=== PATIENT | male | born 1950 | race Two or more races ===

== ENCOUNTER 2019-10-21 08:43 | Emergency (ER) | payer MEDICARE, MEDICAID ==
[~2019-10-21] VITALS: Ht 175.3 cm; Wt 58.9 kg
[2019-10-21] MEDS ORDERED: KETOROLAC 30MG/ML VIAL IV STA (10:35)
[2019-10-21] MEDS ORDERED: SODIUM CHLORIDE 0.9% 1,000 ML IV ONE (10:35)
[2019-10-21 11:04] LABS: HEMATOCRIT. 39.6 % (42.0-52.0); HEMOGLOBIN. 13.2 g/dL (14.0-18.0); MEAN CORPUSCULAR HEMOGLOBIN 31.1 pg (28.0-32.0); MEAN CORPUSCULAR VOLUME 93.4 fL (80.0-94.0); MEAN PLATELET VOLUME 7.5 fl (7.4-10.4); PLATELET 172 x1000/uL (130-400); RED BLOOD CELL COUNT 4.24 mill/uL (4.7-6.1); RED CELL DISTRIBUTION WIDTH 14.3 % (11.6-14.6)
[2019-10-21 11:10] LABS: CHLORIDE 100 mEq/L (98-107)
[2019-10-21 11:13] LABS: PROTHROMBIN TIME 10.7 sec (9.6-11.0)
[2019-10-21 11:34] LABS: PLATELET ESTIMATE NORMAL
[2019-10-21 14:44] LABS: CLARITY URINE CLEAR (CLEAR); COLOR URINE YELLOW (YELLOW); KETONES URINE NEGATIVE (NEGATIVE); LEUKOCYTE ESTERASE URINE NEGATIVE (NEGATIVE); NITRITE URINE NEGATIVE (NEGATIVE); OCCULT BLOOD URINE NEGATIVE (NEGATIVE); PH URINE 5.5 (4.5-8.0); PROTEIN URINE NEGATIVE (NEGATIVE); UROBILINOGEN URINE 0.2 E.U./dL (0.2-1.0)
[2019-10-21 14:59] VITALS: BP 164/92
[2019-10-21 15:25] LABS: *AMPHETAMINES SCREEN URINE NEGATIVE (NEGATIVE); *BARBITURATES SCREEN URINE NEGATIVE (NEGATIVE)
[2019-10-21 15:26] LABS: *COCAINE SCREEN URINE NEGATIVE (NEGATIVE); CANNABINOID URINE SCREEN NEGATIVE (NEGATIVE); METHADONE URINE SCREEN NEGATIVE (NEGATIVE); OPIATES URINE SCREEN NEGATIVE (NEGATIVE); PHENCYCLIDINE URINE SCREEN NEGATIVE (NEGATIVE)
[2019-10-21 15:28] LABS: *BENZODIAZEPINES SCREEN URINE NEGATIVE (NEGATIVE)
== END 2019-10-21 15:19 | disposition home or self-care (01) ==
LOC: ER 08:43
DX: K29.70 Gastritis, unspecified, without bleeding (principal); J44.9 Chronic obstructive pulmonary disease, unspecified; E11.9 Type 2 diabetes mellitus without complications; F17.290 Nicotine dependence, other tobacco product, uncomplicated; F14.10 Cocaine abuse, uncomplicated; F12.10 Cannabis abuse, uncomplicated; Z90.49 Acquired absence of other specified parts of digestive tract; Z88.5 Allergy status to narcotic agent
CPT/HCPCS: 36415; 74176; 80053; 80305; 81003; 83690; 85025; 85610; 93005; 96374; 99285; J1885; J7030

== ENCOUNTER 2019-12-01 13:10 | Emergency (ER) | payer MEDICARE, MEDICAID ==
[~2019-12-01] VITALS: Ht 182.9 cm; Wt 68.0 kg
[2019-12-01] MEDS: KETOROLAC 30MG/ML VIAL IV STA (14:10)
[2019-12-01] MEDS: FAMOTIDINE 20MG/2ML VIAL IV STA (14:10)
[2019-12-01] MEDS: ONDANSETRON HCL 4MG/2ML INJ IV STA (14:12)
[2019-12-01] MEDS: SODIUM CHLORIDE 0.9% 1,000 ML IV ONE (14:12)
[2019-12-01 14:24] LABS: HEMATOCRIT. 39.5 % (42.0-52.0); HEMOGLOBIN. 13.2 g/dL (14.0-18.0); MEAN CORPUSCULAR HEMOGLOBIN 30.9 pg (28.0-32.0); MEAN CORPUSCULAR VOLUME 92.5 fL (80.0-94.0); MEAN PLATELET VOLUME 7.7 fl (7.4-10.4); PLATELET 210 x1000/uL (130-400); RED BLOOD CELL COUNT 4.27 mill/uL (4.7-6.1); RED CELL DISTRIBUTION WIDTH 14.6 % (11.6-14.6)
[2019-12-01 14:31] LABS: CHLORIDE 102 mEq/L (98-107)
[2019-12-01 14:39] LABS: INR 1.1; PROTHROMBIN TIME 11.1 sec (9.6-11.0)
[2019-12-01 14:42] LABS: PLATELET ESTIMATE NORMAL
[2019-12-01] MEDS: HYDROCODONE/ACETAMINOPHEN 5/325MG TABLET PO STA (15:19)
[2019-12-01 16:40] LABS: CLARITY URINE CLEAR (CLEAR); COLOR URINE DARK YELLOW (YELLOW); KETONES URINE NEGATIVE (NEGATIVE); LEUKOCYTE ESTERASE URINE TRACE (NEGATIVE); NITRITE URINE NEGATIVE (NEGATIVE); OCCULT BLOOD URINE NEGATIVE (NEGATIVE); PH URINE 7.5 (4.5-8.0); PROTEIN URINE 1+ (NEGATIVE); SPECIFIC GRAVITY URINE 1.021 (1.005-1.030)
[2019-12-01] MEDS: LORAZEPAM 2MG/ML CPJ IV ONE (17:03)
[2019-12-01 18:30] VITALS: BP 127/76
== END 2019-12-01 18:44 | disposition home or self-care (01) ==
LOC: ER 13:39
DX: R10.9 Unspecified abdominal pain (principal); R05 Cough; Z88.5 Allergy status to narcotic agent
CPT/HCPCS: 36415; 71045; 80053; 81003; 83690; 84484; 85025; 85610; 93005; 96361; 96374; 96375; 99285; J1885; J2060; J2405; J3490; J7030

== ENCOUNTER 2020-01-26 01:37 | Emergency (ER) | payer MEDICARE, MEDICAID ==
[~2020-01-26] VITALS: Ht 177.8 cm; Wt 73.0 kg
[2020-01-26 01:45] VITALS: BP 144/92
[2020-01-26] MEDS ORDERED: PHENOBARBITAL 30 MG TABLET PO ONE (04:30)
== END 2020-01-26 04:46 | disposition home or self-care (01) ==
LOC: ER 01:37
DX: F19.10 Other psychoactive substance abuse, uncomplicated (principal); F15.10 Other stimulant abuse, uncomplicated; F10.20 Alcohol dependence, uncomplicated; Y90.9 Presence of alcohol in blood, level not specified; I10 Essential (primary) hypertension; E11.9 Type 2 diabetes mellitus without complications
CPT/HCPCS: 99283

== ENCOUNTER 2020-05-05 09:07 | Emergency (ER) | payer MEDICARE, MEDICAID ==
[~2020-05-05] VITALS: Ht 175.3 cm; Wt 54.0 kg
[2020-05-05 10:23] LABS: BASOPHILS % 0.9 % (0.0-2.0); EOSINOPHILS % 0.4 % (0.0-5.0); HEMATOCRIT. 40.2 % (42.0-52.0); HEMOGLOBIN. 13.3 g/dL (14.0-18.0); LYMPHOCYTES % 34.3 % (20.0-50.0); MEAN CORPUSCULAR HEMOGLOBIN 30.7 pg (28.0-32.0); MEAN CORPUSCULAR VOLUME 92.5 fL (80.0-94.0); MEAN PLATELET VOLUME 7.9 fl (7.4-10.4); MONOCYTES % 10.8 % (2.0-8.0); NEUTROPHILS % 53.6 % (40.0-76.0); PLATELET 181 x1000/uL (130-400); RED BLOOD CELL COUNT 4.34 mill/uL (4.7-6.1); RED CELL DISTRIBUTION WIDTH 14.6 % (11.6-14.6)
[2020-05-05] MEDS: MORPHINE SULFATE 4 MG/ML CPJ (NOT FOR IM USE) IV ONE ×2 (10:23→21:47)
[2020-05-05] MEDS: SODIUM CHLORIDE 0.9% 500 ML IV ONE (10:24)
[2020-05-05 10:31] LABS: CHLORIDE 98 mEq/L (98-107)
[2020-05-05 10:32] LABS: INR 1.1; PROTHROMBIN TIME 11.6 sec (9.6-11.0)
[2020-05-05] MEDS: MORPHINE SULFATE 4 MG/ML CPJ (NOT FOR IM USE) IV NR (11:51)
[2020-05-05 12:06] LABS: CLARITY URINE CLEAR (CLEAR); COLOR URINE YELLOW (YELLOW); KETONES URINE NEGATIVE (NEGATIVE); LEUKOCYTE ESTERASE URINE NEGATIVE (NEGATIVE); NITRITE URINE NEGATIVE (NEGATIVE); OCCULT BLOOD URINE NEGATIVE (NEGATIVE); PROTEIN URINE NEGATIVE (NEGATIVE); SPECIFIC GRAVITY URINE 1.008 (1.005-1.030); UROBILINOGEN URINE 0.2 E.U./dL (0.2-1.0)
[2020-05-05 12:22] LABS: *COCAINE SCREEN URINE NEGATIVE (NEGATIVE)
[2020-05-05 12:23] LABS: *AMPHETAMINES SCREEN URINE NEGATIVE (NEGATIVE); *BENZODIAZEPINES SCREEN URINE NEGATIVE (NEGATIVE); CANNABINOID URINE SCREEN NEGATIVE (NEGATIVE); METHADONE URINE SCREEN NEGATIVE (NEGATIVE); OPIATES URINE SCREEN PRESUMTIVE POSITIVE (NEGATIVE); PHENCYCLIDINE URINE SCREEN NEGATIVE (NEGATIVE)
[2020-05-05 12:47] LABS: *BARBITURATES SCREEN URINE NEGATIVE (NEGATIVE)
[2020-05-05] MEDS: MORPHINE SULFATE 4 MG/ML CPJ (NOT FOR IM USE) IV STA (23:43)
[2020-05-05] MEDS: AMLODIPINE 10MG TABLET PO ONE (23:43)
[2020-05-06 03:50] VITALS: BP 122/89
[2020-05-06] MEDS: MORPHINE SULFATE 4 MG/ML CPJ (NOT FOR IM USE) IV STA (03:50)
== END 2020-05-06 03:37 | disposition short-term general hospital (02) ==
LOC: ER 10:00 → CANBEDREQ 05-06 00:04 → ER 05-06 03:37
DX: M79.10 Myalgia, unspecified site (principal); R10.9 Unspecified abdominal pain; I10 Essential (primary) hypertension; R79.0 Abnormal level of blood mineral; E11.9 Type 2 diabetes mellitus without complications; F10.20 Alcohol dependence, uncomplicated; F14.10 Cocaine abuse, uncomplicated; F12.10 Cannabis abuse, uncomplicated; G89.29 Other chronic pain; J44.9 Chronic obstructive pulmonary disease, unspecified; F17.290 Nicotine dependence, other tobacco product, uncomplicated; Z90.49 Acquired absence of other specified parts of digestive tract; Z98.890 Other specified postprocedural states; Z88.0 Allergy status to penicillin; Z88.8 Allergy status to other drugs, medicaments and biological substances; Z88.6 Allergy status to analgesic agent; Z59.0 Homelessness; Z20.822 Contact with and (suspected) exposure to COVID-19; Y90.9 Presence of alcohol in blood, level not specified
CPT/HCPCS: 36415; 71045; 74176; 80053; 80305; 81003; 83605; 83690; 83880; 84145; 84484; 85025; 85610; 87040; 87086; 87426; 93005; 96361; 96374; 96376; 99285; 99406; J2270; J7040

== ENCOUNTER 2020-05-17 02:24 | Emergency (ER) | payer MEDICARE, MEDICAID ==
[~2020-05-17] VITALS: Ht 175.3 cm; Wt 67.0 kg
[2020-05-17] MEDS ORDERED: ACETAMINOPHEN 325MG TABLET PO ONE (03:15)
[2020-05-17] MEDS ORDERED: TOPUD PO (12:01)
[2020-05-17 13:10] VITALS: BP 16/78
== END 2020-05-17 13:32 | disposition home or self-care (01) ==
LOC: ER 02:24
DX: M25.512 Pain in left shoulder (principal); T74.11XA Adult physical abuse, confirmed, initial encounter; Y07.499 Other family member, perpetrator of maltreatment and neglect; I10 Essential (primary) hypertension; Y04.8XXA Assault by other bodily force, initial encounter; J44.9 Chronic obstructive pulmonary disease, unspecified; Z88.0 Allergy status to penicillin; Z88.5 Allergy status to narcotic agent; Z91.041 Radiographic dye allergy status; Z79.899 Other long term (current) drug therapy
CPT/HCPCS: 73030; 99285; A4565

== ENCOUNTER 2020-06-04 21:56 | Emergency (ER) | payer MEDICARE, MEDICAID ==
[~2020-06-04] VITALS: Ht 175.3 cm; Wt 63.0 kg
[~2020-06-04 21:56] MED LIST: TOPUD PO
[2020-06-05] MEDS ORDERED: VISCOUS LIDOCAINE 2% 15 ML UDC MM STA (01:09)
[2020-06-05] MEDS ORDERED: MAGNESIUM/ALUMINUM HYDROXIDE/SIMETHICONE 30ML UDC PO ONE (01:15)
[2020-06-05] MEDS ORDERED: FAMOTIDINE 20MG TABLET PO ONE (01:15)
[2020-06-05] MEDS ORDERED: KETOROLAC 60MG/2ML VIAL IM ONE (01:15)
[2020-06-05 02:00] VITALS: BP 158/97
== END 2020-06-05 02:00 | disposition home or self-care (01) ==
LOC: ER 21:56
DX: K29.70 Gastritis, unspecified, without bleeding (principal); G89.29 Other chronic pain; J44.9 Chronic obstructive pulmonary disease, unspecified; I10 Essential (primary) hypertension; F14.10 Cocaine abuse, uncomplicated; F20.9 Schizophrenia, unspecified; Z98.890 Other specified postprocedural states; Z88.0 Allergy status to penicillin; Z88.5 Allergy status to narcotic agent
CPT/HCPCS: 93005; 96372; 99284; J1885; 99283